=== PATIENT | female | born 1985 | race Caucasian/White ===

== ENCOUNTER 2019-04-22 08:59 | Emergency (ER) | payer OTHER ==
[2019-04-22 09:09] VITALS: BP 107/73; PULSE 85; TEMP 97.9; BMI 24.1
[2019-04-22] MEDS ORDERED: diazePAM 2 MG TABLET PO ONE (09:42)
[2019-04-22] MEDS ORDERED: KETOROLAC TROMETHAMINE 30 MG/1 ML VIAL IM ONE (09:42)
[2019-04-22] MEDS ORDERED: diazePAM 2 MG TABLET ONE (09:46)
[2019-04-22] MEDS ORDERED: KETOROLAC TROMETHAMINE 30 MG/1 ML VIAL ONE (09:46)
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
== END 2019-04-22 11:06 | disposition home or self-care (01) ==
LOC: JER 08:59
PROC: 3E0233Z Introduction of Anti-inflammatory into Muscle, Percutaneous Approach (ICD-10-PCS; principal; 2019-04-22)
DX: S16.1XXA Strain of muscle, fascia and tendon at neck level, initial encounter (principal); M54.6 Pain in thoracic spine; V59.49XA Driver of pick-up truck or van injured in collision with other motor vehicles in traffic accident, initial encounter; Y92.414 Local residential or business street as the place of occurrence of the external cause; Y93.89 Activity, other specified; Y99.8 Other external cause status
CPT/HCPCS: 99282-25